=== PATIENT | female | born 1955 | race Hispanic/Latino ===

== ENCOUNTER 2017-01-31 05:11 | Emergency (ER) | payer OTHER ==
[~2017-01-31] VITALS: Ht 152.4 cm; Wt 63.5 kg
[~2017-01-31 05:11] MED LIST: MOBIC15 MG PO
--- NOTE | 2017-01-31 05:21 | ED CARDIAC/CP/PALPITATIONS ---
History of Present Illness General Chief Complaint: Chest Pain Stated Complaint: CHEST TIGHTNESS Source: patient, old records Exam Limitations: no limitations Vital Signs & Intake/Output Vital Signs & Intake/Output Vital Signs Date Time Temp Pulse Resp B/P B/P Pulse O2 O2 Flow FiO2 Mean Ox Delivery Rate 01/31 0720 98.2 62 18 150/72 99 Room Air 01/31 0553 65 137/70 01/31 0528 100 Room Air 01/31 0520 96.0 76 18 177/79 100 Room Air Allergies Coded Allergies: Penicillins (Severe, UNSURE CHILDHOOD REACTION 01/31/17) Triage Nurses Notes Reviewed? yes HPI: Patient presents for evaluation of substernal chest tightness that began abruptly prior to bed last night. Patient states she slept but then awoke with pain at 4:00 in the morning. It is a constant chest tightness and pressure that gets worse with deep inspiration. She denies any associated jaw or arm pain. Upon presentation to the emergency department the patient's pain is characterized as 6 out of 10. She did not try any medications for this. (JOSELINE PARRA,ANUJA Jacobson) Past History Travel History Traveled to [place] past 21 day No Medical History Any Pertinent Medical History? see below for history Neurological: NONE EENT: NONE Cardiovascular: NONE Respiratory: NONE Gastrointestinal: NONE Hepatic: NONE Renal: NONE Musculoskeletal: NONE Psychiatric: NONE Endocrine: NONE Blood Disorders: NONE Cancer(s): NONE Surgical History Surgical History: non-contributory Psychosocial History What is your primary language [place] Family History Hx Contributory? No (JOSELINE PARRA,ANUJA Jacobson) Review of Systems Review of Systems Constitutional: Reports: no symptoms. EENTM: Reports: no symptoms. Respiratory: Reports: no symptoms. Cardiovascular: Reports: see HPI. GI: Reports: no symptoms. Genitourinary: Reports: no symptoms. Musculoskeletal: Reports: no symptoms. Skin: Reports: no symptoms. Neurological/Psychological: Reports: no symptoms. Hematologic/Endocrine: Reports: no symptoms. Immunologic/Allergic: Reports: no symptoms. All Other Systems: Reviewed and Negative (JOSELINE PARRA,ANUJA Jacobson) Physical Exam Physical Exam Cardiovascular: see below Comments: Gen.: Well-nourished, well-developed, no acute respiratory distress. Head: Normocephalic, atraumatic. Eyes: Normal inspection bilaterally Ears: Normal inspection bilaterally Nose: Normal inspection Throat/mouth : Moist mucosa Neck: Supple, full range of motion, no goiter Heart: Regular rate and rhythm, no murmurs rubs or gallops Lungs: Clear to auscultation bilaterally with normal air entry Chest: Nontender Back: Normal range of motion Abdomen: Soft, nontender, nondistended, normal bowel sounds Extremities: Normal range of motion grossly, equal radial pulses, no cyanosis clubbing or edema Neurologic: Cranial nerves grossly intact, speech is clear Skin: warm and dry Psychiatric: Calm, cooperative, no apparent delusions or hallucinations Core Measures ACS in differential dx? No Severe Sepsis Present: No Septic Shock Present: No (JOSELINE PARRA,ANUJA Jacobson) Progress Differential Diagnosis: AMI, atrial fibrillation, musculoskeletal pain, myocarditis, pancreatitis, pericarditis, pneumonia, pneumothorax, unstable angina Plan of Care: Orders Procedure Date/time Status EKG 01/31 930 Active TROPONIN LEVEL 01/31 900 Complete Telemetry/[employer] 01/31 531 Active TROPONIN LEVEL 01/31 531 Complete MAGNESIUM 01/31 531 Complete CBC WITHOUT DIFFERENTIAL 01/31 531 Complete BASIC METABOLIC PANEL 01/31 531 Complete EKG 02/01 512 Active Laboratory Tests 01/31/17 0930: Troponin I Cancelled 01/31/17 0914: Troponin I < 0.01 01/31/17 0540: Anion Gap 10, Estimated GFR > 60, BUN/Creatinine Ratio 30.0 H, Glucose 96, Calcium 8.5, Magnesium 1.9, Troponin I < 0.01, CBC w Diff NO MAN DIFF REQ, RBC 4.22, MCV 84.6, MCH 28.2, RDW 13.5, MPV 9.4, Gran % 59.4, Lymphocytes % 30.6, Monocytes % 7.3, Eosinophils % 1.8, Basophils % 0.9, Absolute Granulocytes 5.9, Absolute Lymphocytes 3.0, Absolute Monocytes 0.7 H, Absolute Eosinophils 0.2, Absolute Basophils 0.1, PUBS MCHC 33.4 Diagnostic Imaging: Discussed w/RAD: Radiology Read. CXR Impression: PATIENT: OSCAR REED PRESENT AGE: 61 PATIENT ACCOUNT NO: [id number] : 54 LOCATION: [facility] ORDERING PHYSICIAN: ANUJA TREVIZO MD SERVICE DATE: 01/31/17 EXAM TYPE: RAD - XRY-PORTABLE CHEST XRAY XR PORTABLE CHEST CLINICAL INFORMATION: Chest tightness. COMPARISON: None available. TECHNIQUE: Portable frontal view of the chest was obtained. FINDINGS: Symmetric lung inflation. There is no focal consolidation, pleural effusion, or pneumothorax. Cardiac silhouette size is normal. There are no acute osseous findings. IMPRESSION: No acute pulmonary process. DICTATED BY: ANUJA EWING MD DATE/TIME DICTATED:01/31/17600 SLAG EXPANDER:JEREMIE DATE/ TIME TRANSCRIBED:01/31/17600 CONFIDENTIAL, DO NOT COPY WITHOUT APPROPRIATE AUTHORIZATION. <Electronically signed in Other Vendor System> SIGNED BY: ANUJA EWING MD 01/31/17605 Initial ED EKG: NSR, rate (62), LVH Prior EKG: changed (no lvh on prior) Comments: 01/31/2017 7:00:41 AM I have updated OSCAR on test results. I have changed the time of the patient's repeat troponin based on her schedule (she needs to take her grandson to [facility] for flight). She had slight relief with the sublingual nitroglycerin and is now trying a GI cocktail. 01/31/17 07:15 pt signed out to dr pressley. repeat ekg and troponin pending. Slight relief with sublingual nitroglycerin. GI cocktail given. (ANUJA TREVIZO MD) Comments: Currently no chest pain. Repeat EKG NSR without ischemic or change from previous. (GRISELDA PRESSLEY MD) Departure Departure Condition: Stable Clinical Impression Primary Impression: Chest pain Referrals: ANGEL PARRA,PHU (PCP/Family) Departure Forms: Customer Survey General Discharge Information (ANUJA TREVIZO MD) Departure Time of Disposition: 941 Disposition: HOME OR SELF CARE (GRISELDA PRESSLEY MD) Critical Care Note Critical Care Note Critical Care Time: non-applicable (ANUJA TREVIZO MD)
[2017-01-31 05:50] LABS: ABSOLUTE BASOPHIL COUNT 0.1 /CUMM (0.0-0.2); ABSOLUTE EOSINOPHIL COUNT 0.2 /CUMM (0.0-0.7); ABSOLUTE GRANULOCYTE CT 5.9 /CUMM (1.4-6.5); ABSOLUTE MONOCYTE COUNT 0.7 /CUMM (0.10-0.60); BASOPHIL % 0.9 % (0.0-2.0); EOSINOPHIL % 1.8 % (0-5); GRANULOCYTE % 59.4 % (42.2-75.2); HEMATOCRIT 35.7 % (37-47); MEAN CORPUSCULAR HGB 28.2 PG (27.0-31.0); MEAN CORPUSCULAR HGB CONC 33.4 G/DL (33.0-37.0); MEAN CORPUSCULAR VOLUME 84.6 FL (81.0-99.0); MEAN PLATELET VOLUME 9.4 FL (7.4-10.4); PLATELET COUNT 282 /CUMM (130-400); RBC DISTRIBUTION WIDTH 13.5 % (11.5-14.5); RED BLOOD CELL CT 4.22 /CUMM (4.20-5.40); WHITE BLOOD CELL COUNT 9.9 /CUMM (4.8-10.8)
--- NOTE | 2017-01-31 06:06 | RADIOLOGY REPORT ---
XR PORTABLE CHEST CLINICAL INFORMATION: Chest tightness. COMPARISON: None available. TECHNIQUE: Portable frontal view of the chest was obtained. FINDINGS: Symmetric lung inflation. There is no focal consolidation, pleural effusion, or pneumothorax. Cardiac silhouette size is normal. There are no acute osseous findings. IMPRESSION: No acute pulmonary process.
[2017-01-31 07:20] VITALS: BP 150/72
== END 2017-01-31 10:15 ==
LOC: ERH 05:11
PROVIDERS: Emergency Medicine
DX: R07.89 Other chest pain (principal)
CPT/HCPCS: 93005; 93010